=== PATIENT | female | born 1980 | race Hispanic/Latino ===

== ENCOUNTER 2018-07-16 19:38 | Emergency (ER) | payer BC, OTHER ==
[~2018-07-16] VITALS: Ht 160 cm; Wt 97.5 kg
--- OUTSIDE RECORDS SUMMARY | 2018-07-16 19:41 | XMS REPORT ---
Author [facility] Address Unknown Phone Unavailable Care Team Providers Care Head Esthetician Name Role Phone Taran MAZARIEGOS Unavailable Unavailable Problems This patient has no known problems. Allergies, Adverse Reactions, Alerts This patient has no known allergies or adverse reactions. Medications This patient has no known medications. Results Test Description Test Time Test Comments Text Results Atomic Results Result Comments US GALLBLADDER [place] [address] Patient Name: WILLIS CONDE MR #: [id number] : 1980 Age/Sex: 36/F Req #: [id number] Adm Physician: Ordered by: DIMITRI MAZARIEGOS MD Report #: [id number] Location: ER Room/Bed: Procedure: [id number] US/US GALLBLADDER Exam Date: Exam Time: REPORT STATUS: Signed PROCEDURE: US GALLBLADDER COMPARISON: CT abdomen and pelvis 05/14/2011. INDICATIONS: Abdomen Pain TECHNIQUE: Merrill-scale and color doppler transverse and longitudinal images of the right upper quadrant of the abdomen were obtained. FINDINGS: Liver: 14.2 cm in length in the right midclavicular line. Normal parenchymal echogenicity. No focal mass. Main portal vein: 0.7 cm in caliber. Patent. Hepatopedal flow. Gallbladder: Echogenic shadowing calculus in the fundus. No wall thickening or pericholecystic fluid. Common Bile Duct: 0.3 cm in caliber. Sonographic Tejada's sign: Reported as negative. Right kidney: 12.5 cm in length. Normal renal cortical echogenicity. No solid masses or hydronephrosis. Pancreas: The visualized portions are unremarkable. Inferior vena cava: Patent Aorta: Non-aneurysmal Ascites: None in the right upper quadrant of the abdomen. CONCLUSION: Cholelithiasis without sonographic evidence of acute cholecystitis. Dictated by: Marifer Barillas M.D. on 01/18/2017 at 10:19 Electronically approved by: Marifer Barillas M.D. on 01/18/2017 at 10:19 Dictated By: MARIFER BARILLAS MD [id number] T ranscribed By: REUBEN on 01/18/17 1019 COPY TO: DIMITRI MAZARIEGOS MD
[2018-07-16] MEDS ORDERED: ALBUTEROL/IPRATROPIUM 3 ML NEB NEB ONE (20:30)
[2018-07-16] MEDS ORDERED: METHYLPREDNISOLONE SOD SUCC 125 MG/2ML VIAL IV ONE (20:30)
--- NOTE | 2018-07-16 21:22 | Diagnostic Imaging Report ---
EXAMINATION: CXR 2 VIEW - HOPD INDICATION: Cough, congestion, sore throat COMPARISON: None FINDINGS: TUBES and LINES: None. LUNGS: Lungs are well inflated. Lungs are clear. There is no evidence of pneumonia or pulmonary edema. PLEURA: No pleural effusion or pneumothorax. HEART AND MEDIASTINUM: The cardiomediastinal silhouette is unremarkable. BONES AND SOFT TISSUES: No acute osseous lesion. Soft tissues are unremarkable. UPPER ABDOMEN: No free air under the diaphragm. IMPRESSION: No acute thoracic abnormality. Signed by: DR. Jameel Marks MD on 07/16/2018 9:19 PM
[2018-07-16] MEDS ORDERED: PREDNISONE20 MG PO (21:57)
[2018-07-16] MEDS ORDERED: PROAIR HFA INH8.5 GM INH (22:01)
[2018-07-16] MEDS ORDERED: CHERATUSSIN AC118 ML PO (22:03)
== END 2018-07-16 22:28 | disposition home or self-care (01) ==
LOC: FSED 19:38
DX: R05 Cough (principal); R07.89 Other chest pain; J20.9 Acute bronchitis, unspecified
CPT/HCPCS: 71046; 80053; 85025; 99283; J2930

== ENCOUNTER 2018-09-13 14:21 | Emergency (ER) | payer BC, OTHER ==
[~2018-09-13] VITALS: Ht 160 cm; Wt 97.5 kg
[~2018-09-13 14:21] MED LIST: CHERATUSSIN AC118 ML PO; PREDNISONE20 MG PO; PROAIR HFA INH8.5 GM INH
[2018-09-13] MEDS ORDERED: DICYCLOMINE HCL 20 MG TAB PO ONE (14:30)
[2018-09-13] MEDS ORDERED: PROMETHAZINE HCL (IM) 25 MG/ML VIAL IM ONE (14:30)
[2018-09-13] MEDS ORDERED: PROMETHAZINE HCL (IM) 25 MG/ML VIAL ONE (14:42)
[2018-09-13] MEDS ORDERED: DICYCLOMINE HCL 10 MG CAP ONE (14:43)
[2018-09-13] MEDS ORDERED: SODIUM CHLORIDE 0.9% 500ML 500 ML ONE (14:43)
[2018-09-13] MEDS ORDERED: PROMETHAZINE 25MG/ NS 50ML (IV) IV ONE (14:45)
--- NOTE | 2018-09-13 14:52 | NUR ---
pt moaning when meds brought to room, but as soon as cell rang, pt immediately answered with normal tensive tone and had conversation on phone while trying to explain medications.
[2018-09-13] MEDS ORDERED: ONDANSETRON HCL INJ 2MG/ML 2ML 2 MG/ML VIAL IV STA (15:30)
[2018-09-13] MEDS ORDERED: ONDANSETRON HCL INJ 2MG/ML 2ML 2 MG/ML VIAL ONE (15:30)
== END 2018-09-13 16:41 | disposition home or self-care (01) ==
LOC: FSED 14:21
DX: R11.2 Nausea with vomiting, unspecified (principal); R19.7 Diarrhea, unspecified; R10.9 Unspecified abdominal pain; A08.4 Viral intestinal infection, unspecified; I10 Essential (primary) hypertension; E11.9 Type 2 diabetes mellitus without complications
CPT/HCPCS: 80053; 81003; 81025; 85025; 99284; J2405; J2550; J7040

== ENCOUNTER → 2020-10-29 | Emergency (ER) | payer BC, OTHER ==
[~2020-10-29] VITALS: Ht 160 cm; Wt 106.6 kg
[~2020-10-29] MED LIST changes: +CLINDAMYCIN HC300 MG PO; +FEROSUL325 MG; +HYDROCODON-ACE1 EA12 PO; +HYDROCODONE/APAP 5MG-325MG TAB ONE; +HYDROCODONE/APAP 5MG-325MG TAB PO ONE; +IBUPROFEN800 MG PO; +SERTRALINE HCL50 MG
== END ==
LOC: FSED 21:21
DX: K02.9 Dental caries, unspecified (principal); K04.7 Periapical abscess without sinus; J45.909 Unspecified asthma, uncomplicated; Z20.822 Contact with and (suspected) exposure to COVID-19; E78.00 Pure hypercholesterolemia, unspecified

== ENCOUNTER 2020-10-31 15:03 | Emergency (ER) | payer BC, OTHER ==
[~2020-10-31] VITALS: Ht 160 cm; Wt 106.6 kg
[~2020-10-31 15:03] MED LIST changes: -FEROSUL325 MG; -HYDROCODONE/APAP 5MG-325MG TAB ONE; -HYDROCODONE/APAP 5MG-325MG TAB PO ONE; -SERTRALINE HCL50 MG
[2020-10-31] MEDS ORDERED: KETOROLAC TROMETHAMINE 30 MG/ML VIAL IV STA (15:16)
[2020-10-31] MEDS ORDERED: SODIUM CHLORIDE 0.9% 1000ML 1,000 ML IV STA (15:16)
[2020-10-31] MEDS ORDERED: MORPHINE SULFATE INJ 4 MG/ML INJ 1ML IV STA (15:16)
[2020-10-31] MEDS ORDERED: ONDANSETRON HCL INJ 2MG/ML 2ML 2 MG/ML VIAL IV STA (15:16)
[2020-10-31] MEDS ORDERED: CLINDAMYCIN 600MG / 50ML 50 ML IV ONE (15:30)
[2020-10-31] MEDS ORDERED: LEVOFLOXACIN 750MG/D5W 150ML 150 ML IV ONE (15:30)
[2020-10-31] MEDS ORDERED: SODIUM CHLORIDE 0.9% 1000ML 2,000 ML ONE (15:32)
[2020-10-31] MEDS ORDERED: ONDANSETRON HCL INJ 2MG/ML 2ML 2 MG/ML VIAL ONE (15:32)
[2020-10-31] MEDS ORDERED: KETOROLAC TROMETHAMINE 30 MG/ML VIAL ONE (15:33)
[2020-10-31 15:55] LABS: BASOPHILS % 0.3 % (0.0-1.0); EOSINOPHILS % 0.1 % (0.0-6.0); HEMATOCRIT 34.5 % (34.2-44.1); HEMOGLOBIN 10.5 g/dL (12.0-16.0); LYMPHOCYTES % 14.3 % (18.0-39.1); MEAN CORPUSCULAR HEMOGLOBIN 23.8 pg (28-32); MEAN CORPUSCULAR HGB CONC 30.4 g/dL (31-35); MEAN CORPUSCULAR VOLUME 78.2 fL (81-99); MONOCYTES # (AUTO) 0.4 (0.2-0.8); MONOCYTES % 5.7 % (4.4-11.3); NEUTROPHILS # (AUTO) 5.7 (2.1-6.9); NEUTROPHILS % 79.2 % (38.7-80.0); PLATELET COUNT 279 x10e3/uL (140-360); RED BLOOD COUNT 4.41 x10e6/uL (3.6-5.1); RED CELL DISTRIBUTION WIDTH 15.9 % (11.7-14.4)
[2020-10-31 16:12] LABS: CLARITY,URINE CLOUDY (CLEAR); COLOR,URINE RED (YELLOW); KETONES,URINE NEGATIVE (NEGATIVE); LEUKOCYTE ESTERASE ,URINE NEGATIVE (NEGATIVE); NITRITE,URINE NEGATIVE (NEGATIVE); PROTEIN,URINE DIPSTICK 2+ (NEGATIVE); RBC,URINE 21-50 /HPF (0-5); URINE UROBILINOGEN 1 mg/dL (0.2 - 1)
[2020-10-31 16:13] LABS: ALBUMIN 3.7 g/dL (3.5-5.0); ALBUMIN/GLOBULIN RATIO 1.1 (0.8-2.0); ANION GAP 14.6 mmol/L (8-16); CALCIUM 8.7 mg/dL (8.4-10.2); CREATININE, SERUM 0.69 mg/dL (0.57-1.11); POTASSIUM 3.6 mmol/L (3.5-5.1)
[2020-10-31] MEDS ORDERED: IOPAMIDOL 370 MG/ML 200 ML INFUS..BTL INJ ONE (16:55)
[2020-10-31] MEDS ORDERED: SODIUM CHLORIDE 0.9% 50ML 50 ML ONE (16:55)
[2020-10-31] MEDS ORDERED: FEROSUL325 MG (17:21)
[2020-10-31] MEDS ORDERED: SERTRALINE HCL50 MG (17:21)
[2020-10-31 18:01] LABS: CREATINE KINASE MB 0.3 ng/mL (0-5.0)
[2020-10-31] MEDS ORDERED: PROMETHAZINE HCL (IM) 25 MG/ML VIAL IM ONE (19:30)
== END 2020-10-31 20:31 | disposition home or self-care (01) ==
LOC: ER 15:23
DX: K08.89 Other specified disorders of teeth and supporting structures (principal); K04.7 Periapical abscess without sinus; E78.5 Hyperlipidemia, unspecified; J45.909 Unspecified asthma, uncomplicated; E78.00 Pure hypercholesterolemia, unspecified; Z20.822 Contact with and (suspected) exposure to COVID-19
CPT/HCPCS: 36415; 70487; 70491; 80053; 81001; 82550; 82553; 83605; 84484; 84702; 85025; 87040; 87086; 93005; 99284; J1885; J2270; J2405; J2550; J7030; Q9967; U0002

== ENCOUNTER 2021-04-21 13:17 | Emergency (ER) | payer BC, OTHER ==
[~2021-04-21] VITALS: Ht 160 cm; Wt 106.6 kg
[~2021-04-21 13:17] MED LIST changes: +FEROSUL325 MG; +SERTRALINE HCL50 MG
[2021-04-21] MEDS ORDERED: PREDNISONE20 MG PO (13:42)
[2021-04-21] MEDS ORDERED: PROVENTIL HFA6.7 GM INH (13:42)
[2021-04-21] MEDS ORDERED: TESSALON PERLE100 MG PO (13:42)
[2021-04-21] MEDS ORDERED: PREDNISONE 20 MG TAB PO ONE (13:45)
[2021-04-21] MEDS ORDERED: PREDNISONE 20 MG TAB ONE (14:38)
== END 2021-04-21 15:10 | disposition home or self-care (01) ==
LOC: FSED 13:21
DX: R05.9 Cough, unspecified (principal); U07.1 COVID-19; B34.9 Viral infection, unspecified; J45.909 Unspecified asthma, uncomplicated
CPT/HCPCS: 71045; 81003; 87086; 99284; J7512; U0002

== ENCOUNTER 2024-06-11 13:00 | Emergency (ER) | payer BC, OTHER ==
[~2024-06-11] VITALS: Ht 160 cm; Wt 119.7 kg
[~2024-06-11 13:00] MED LIST changes: +PAXLOVID 300-11 EACH PO; +PROVENTIL HFA6.7 GM INH; +TESSALON PERLE100 MG PO; +VITAMIN D3 MA125 MCG PO
[2024-06-11 13:22] VITALS: PULSE 89; RESP 17; TEMP 98.4; O2SAT 100
[2024-06-11] MEDS ORDERED: NEURONTIN300 MG PO (14:16)
== END 2024-06-11 14:28 | disposition home or self-care (01) ==
LOC: ER 13:40
DX: M54.2 Cervicalgia (principal); M79.7 Fibromyalgia; G89.29 Other chronic pain; E78.5 Hyperlipidemia, unspecified; D64.9 Anemia, unspecified; J45.909 Unspecified asthma, uncomplicated; E78.00 Pure hypercholesterolemia, unspecified; F41.9 Anxiety disorder, unspecified; Z87.442 Personal history of urinary calculi
CPT/HCPCS: 99282

== ENCOUNTER 2024-10-30 19:37 | Emergency (ER) | payer BC, OTHER ==
[~2024-10-30] VITALS: Ht 160 cm; Wt 115.7 kg
[~2024-10-30 19:37] MED LIST changes: +NEURONTIN300 MG PO
[2024-10-30 19:41] VITALS: PULSE 105; RESP 21; TEMP 98.9
[2024-10-30] MEDS ORDERED: ONDANSETRON ODT4 MG PO (20:33)
[2024-10-30] MEDS ORDERED: IBUPROFEN600 MG PO (20:33)
[2024-10-30] MEDS ORDERED: TYLENOL325 MG PO (20:33)
[2024-10-30] MEDS: ONDANSETRON HCL 4 MG ORAL DISINTEGRATING TAB PO ONE (20:38)
[2024-10-30] MEDS ORDERED: ACETAMINOPHEN 325 MG TAB ONE (20:40)
[2024-10-30] MEDS: ACETAMINOPHEN 325 MG TAB PO ONE (20:41)
[2024-10-30 21:10] VITALS: BP 132/90; PULSE 93; RESP 18; TEMP 98.9; O2SAT 98
== END 2024-10-30 21:14 | disposition home or self-care (01) ==
LOC: FSED 19:41
DX: B34.9 Viral infection, unspecified (principal); J02.9 Acute pharyngitis, unspecified
CPT/HCPCS: 0223U; 83518 ×2; 87400; 99283; Q0162